=== PATIENT | female | born 1955 ===

== ENCOUNTER 2016-10-25 16:22 | Emergency (ER) | payer MEDICARE ==
[2016-10-25 16:34] VITALS: BMI 37.9
[2016-10-25 16:35] VITALS: RESP 18; TEMP 98.6
--- NOTE | 2016-10-25 17:00 | ED PDOC ---
Arrival/HPI <Douglas Dutta - Last Filed: 10/25/16 19:10> - General Historian: Patient, Family (daughter) - History of Present Illness Time/Duration: Other (since yesterday) Quality: Pressure Context: Home <MartinesElva boltonim P - Last Filed: 10/27/16 13:48> - General Chief Complaint: Medical Clearance Time Seen by Provider: 10/25/16 16:45 - History of Present Illness Narrative History of Present Illness (Text): 10/25/16 16:57 This 61 yo female with pmh hyperlipediemia, HTN, s/p vascular surgery left leg, presents to this ED c/o intermittent pressure like pain on left "carotid" artery since yesterday. Pain last for about 5 minutes, but it occurs very frequent. Pain radiates to left side of face, and to left anterior upper chest. Patient denies cp, sob, wheezing, trauma, dizziness, abdominal pain, or abnormal gait (Jerardo Martines P) Past Medical History - Provider Review Nursing Documentation Reviewed: Yes - Infectious Disease Hx of Infectious Diseases: None - Reproductive Menopause: Yes - Cardiac Hx Hypertension: Yes Hx Peripheral Vascular Disease: Yes Other/Comment: varicose veins legs - Integumentary Other/Comment: ulcer left ankle - Musculoskeletal/Rheumatological Hx Osteoarthritis: Yes - Gastrointestinal Hx Gastrointestinal Disorders: Yes Hx Gastroesophageal Reflux: Yes - Psychiatric Hx Substance Use: No - Surgical History Hx Tubal Ligation: Yes Other/Comment: vein stripping right leg 20 yrs ago - Anesthesia Hx Anesthesia: Yes Hx Anesthesia Reactions: No Hx Malignant Hyperthermia: No <Martines,Nahim P - Last Filed: 10/27/16 13:48> Family/Social History - Physician Review Nursing Documentation Reviewed: Yes Family/Social History: No Known Family HX Smoking Status: Never Smoked Hx Alcohol Use: No Hx Substance Use: No <Martines,Nahim P - Last Filed: 10/27/16 13:48> Allergies/Home Meds <Douglas Dutta - Last Filed: 10/25/16 19:10> <MartinesNahim P - Last Filed: 10/27/16 13:48> Allergies/Adverse Reactions: Allergies No Known Allergies Allergy (Verified 12/28/13 11:19) Home Medications: Home Meds Medication Instructions Recorded Confirmed Enalapril Maleate 20 mg PO DAILY 12/28/13 10/25/16 Simvastatin 20 mg PO DAILY 12/28/13 10/25/16 Review of Systems - Review of Systems Constitutional: Normal. absent: Fatigue, Weight Change, Fevers Eyes: Normal ENT: Normal Respiratory: Normal Cardiovascular: Normal Gastrointestinal: Normal Genitourinary Female: Normal Musculoskeletal: Other (Left "carotid" artery pressure like pain) Skin: Normal Neurological: Normal Endocrine: Normal Hemo/Lymphatic: Normal Psychiatric: Normal <Jerardo Martines - Last Filed: 10/27/16 13:48> Physical Exam Temperature: Afebrile Blood Pressure: Normal Pulse: Regular Respiratory Rate: Normal Appearance: Positive for: Well-Appearing, Non-Toxic, Comfortable Pain Distress: None Mental Status: Positive for: Alert and Oriented X 3 - Systems Exam Head: Present: Atraumatic, Normocephalic Pupils: Present: PERRL Extroacular Muscles: Present: EOMI Conjunctiva: Present: Normal Mouth: Present: Moist Mucous Membranes Neck: Present: Normal Range of Motion, Trachea Midline. No: Meningeal Signs, MIDLINE TENDERNESS, Paraspinal Tenderness, JVD, Lymphadenopathy, Bruit Respiratory/Chest: Present: Clear to Auscultation, Good Air Exchange. No: Respiratory Distress, Accessory Muscle Use Cardiovascular: Present: Regular Rate and Rhythm, Normal S1, S2. No: Murmurs Abdomen: Present: Normal Bowel Sounds. No: Tenderness, Distention, Peritoneal Signs Back: Present: Normal Inspection Upper Extremity: Present: Normal Inspection, Normal ROM, NORMAL PULSES, Neurovascularly Intact, Capillary Refill < 2s. No: Cyanosis, Edema Lower Extremity: Present: Normal Inspection, Normal ROM. No: Edema, CALF TENDERNESS Neurological: Present: GCS=15, CN II-XII Intact, Speech Normal Skin: Present: Warm, Dry, Normal Color. No: Rashes Psychiatric: Present: Alert, Oriented x 3, Normal Insight, Normal Concentration <ConradElvaashley P - Last Filed: 10/27/16 13:48> Vital Signs Temp Pulse Resp BP Pulse Ox 10/25/16 21:27 77 18 133/79 95 10/25/16 18:24 70 18 132/58 L 95 10/25/16 16:24 98.6 F 87 18 127/74 98 Medical Decision Making <Douglas Dutta - Last Filed: 10/25/16 19:10> Re-evaluation Time: 21:16 Reassessment Condition: Re-examined, Improved - Lab Interpretations I have reviewed the lab results: Yes Interpretation: No clinic. lab abnormalty <Jerardo Martines - Last Filed: 10/27/16 13:48> ED Course and Treatment: 10/25/16 21:16 Re-evaluation. Patient feels better. Discussed results and plan with patient who expresses understanding. All questions answered and there is agreement with the plan to discharge home with instructions. Patient stable for discharge. Return if symptoms persist or worsen Patient was examined by Dr. Dutta, who ordered CT angio of neck. (Jerardo Martines) - Lab Interpretations Lab Results: 10/25/16 17:05 10/25/16 17:05 Lab Results 10/25/16 17:05: WBC 5.2, RBC 4.67, Hgb 13.4, Hct 40.9, MCV 87.6, MCH 28.7, MCHC 32.8, RDW 14.4, Plt Count 314, MPV 9.7, Gran % 64.4, Lymph % (Auto) 23.1, [place] % (Auto) 7.8 H, Eos % (Auto) 4.3, Baso % (Auto) 0.4, Gran # 3.33, Lymph # 1.2, [place] # 0.4, Eos # 0.2, Baso # 0.02, Sodium 141, Potassium 3.8, Chloride 103, Carbon Dioxide 26, Anion Gap 16, BUN 17, Creatinine 0.9, Est GFR ( Amer) > 60, Est GFR (Non-Af Amer) > 60, Random Glucose 112 H, Calcium 9.9, Magnesium 1.8, Total Bilirubin 0.6, AST 31, ALT 27, Alkaline Phosphatase 71, Lactate Dehydrogenase 548, Total Creatine Kinase 106, Troponin I < 0.01, Total Protein 7.7, Albumin 4.2, Globulin 3.5, Albumin/Globulin Ratio 1.2 - RAD Interpretation Narrative RAD Interpretations (Text): 10/25/16 21:16 Patient Name: KEANU QUICK Institution Name: [place] [address] FINDINGS: VASCULATURE: Right common carotid artery: Unremarkable. No significant stenosis. No dissection or occlusion. Right internal carotid artery: Unremarkable. Extracranial segment is patent with no significant stenosis. No dissection or occlusion. Right external carotid artery: Unremarkable. No occlusion. Right vertebral artery: Unremarkable. No significant stenosis. No dissection or occlusion. Left common carotid artery: Unremarkable. No significant stenosis. No dissection or occlusion. KEANU QUICK | Preliminary Radiology Report Page 2 of 3 Left internal carotid artery: Unremarkable. Extracranial segment is patent with no significant stenosis. No dissection or occlusion. Left external carotid artery: Unremarkable. No occlusion. Left vertebral artery: Unremarkable. No significant stenosis. No dissection or occlusion. NECK: Bones/joints: Degenerative change in the spine. No acute fracture. No dislocation. Soft tissues: Unremarkable as visualized. No mass. Lung apices: Atelectasis in the upper lobes. CAROTID STENOSIS REFERENCE USING NASCET CRITERIA: % ICA stenosis = (1 - narrowest ICA diameter/diameter of distal cervical ICA) x 100. Mild - <50% stenosis. Moderate - 50-69% stenosis. Severe - 70-94% stenosis. Near occlusion - 95-99% stenosis. Occluded - 100% stenosis. IMPRESSION: No acute findings. No dissection EXAM: CT Head With Intravenous Contrast CLINICAL HISTORY: 61 years old, female; Pain; Other: Neck pain; Additional info: L side carotid / neck pain - R/O dissection TECHNIQUE: Axial computed tomography images of the head with intravenous contrast during the arterial phase of enhancement. CONTRAST: 95 mL of visipaque administered intravenously. COMPARISON: No relevant prior studies available. FINDINGS: Right internal carotid artery: No acute findings. Intracranial segment is patent with no significant stenosis. No aneurysm. Right anterior cerebral artery: Unremarkable. No occlusion or significant stenosis. No aneurysm. Right middle cerebral artery: Unremarkable. No occlusion or significant stenosis. No aneurysm. Right posterior cerebral artery: Unremarkable. No occlusion or significant stenosis. No aneurysm. Right vertebral artery: Unremarkable as visualized. Left internal carotid artery: No acute findings. Intracranial segment is patent with no significant stenosis. No aneurysm. Left anterior cerebral artery: Unremarkable. No occlusion or significant stenosis. No aneurysm. Left middle cerebral artery: Unremarkable. No occlusion or significant stenosis. No aneurysm. Left posterior cerebral artery: Unremarkable. No occlusion or significant stenosis. No aneurysm. Left vertebral artery: Unremarkable as visualized. Basilar artery: Unremarkable. No occlusion or significant stenosis. No aneurysm. Sinuses: Left maxillary sinus air-fluid level consistent with sinusitis. IMPRESSION: No acute findings. Thank you for allowing us to participate in the care of your patient. Dictated and Authenticated by: Óscar Stone MD 10/25/2016 9:10 PM Eastern Time ([place] & [place]) (Jerardo Martines) Radiology Orders: 10/25/16 16:55 CHEST PORTABLE [RAD] Stat 10/25/16 18:56 ANGIOGRAPHY NECK [CT] Stat - Medication Orders Current Medication Orders: Discontinued Medications Iodixanol (Visipaque 320 Mg/Ml 100 Ml) Confirm Administered Dose 100 ml IV .Knok- Complete [employer] ONE Stop: 10/25/16 20:03 - PA / SEAM FELLER / Resident Statement / has reviewed & agrees with the documentation as recorded. EJ has examined the patient and agrees with the treatment plan. <Douglas Dutta - Last Filed: 10/25/16 19:10> Disposition/Present on Arrival <Douglas Dutta - Last Filed: 10/25/16 19:10> - Present on Arrival Any Indicators Present on Arrival: No History of DVT/PE: No History of Uncontrolled Diabetes: No Urinary Catheter: No History of Decub. Ulcer: No History Surgical Site Infection Following: None - Disposition Have Diagnosis and Disposition been Completed?: Yes Disposition Time: 21:17 Patient Plan: Discharge <Jerardo Martines - Last Filed: 10/27/16 13:48> - Disposition Diagnosis: Neck pain Disposition: HOME/ ROUTINE Condition: GOOD Discharge Instructions (ExitCare): Musculoskeletal Pain (ED) Additional Instructions: Call private doctor for revaluation in 1-2 days. Return to emergency if symptoms returns or worsen. Referrals: Tressa Ontiveros MD [Primary Care Provider] - Follow up with primary
[2016-10-25 17:19] LABS: ADD MANUAL DIFF? NO
[2016-10-25 17:29] LABS: BASO # 0.02 K/mm3 (0.0-2.0); BASO % 0.4 % (0.0-3.0); EOS # 0.2 (0.0-0.7); EOS % 4.3 % (1.5-5.0); GRAN # 3.33 (1.4-6.5); GRAN % 64.4 % (50.0-68.0); HEMATOCRIT 40.9 % (36.0-48.0); LYMPH # 1.2 (1.2-3.4); LYMPH % 23.1 % (22.0-35.0); MEAN CELL VOLUME 87.6 fL (80.0-105.0); MEAN CORPUSCULAR HEMOGLOBIN 28.7 pg (25.0-35.0); MEAN CORPUSCULAR HGB CONC 32.8 g/dl (31.0-37.0); MEAN PLATELET VOLUME 9.7 fl (7.0-11.0); MONO # 0.4 (0.1-0.6); MONO % 7.8 % (1.0-6.0); PLATELET COUNT 314 10^3/uL (120.0-450.0); RED CELL DISTRIBUTION WIDTH 14.4 % (11.5-14.5); WHITE BLOOD COUNT 5.2 10^3/ul (4.5-11.0)
[2016-10-25 18:05] LABS: ALB/GLOB RATIO 1.2 (1.1-1.8); ALKALINE PHOSPHATASE 71 U/L (38-133); ALT/SGPT 27 U/L (7-56); AST/SGOT 31 U/L (15-39); BILIRUBIN,TOTAL 0.6 mg/dL (0.2-1.3); BLOOD UREA NITROGEN 17 mg/dL (7-21); CALCIUM 9.9 mg/dL (8.4-10.5); CARBON DIOXIDE 26 mmol/L (21-33); CHLORIDE 103 mmol/L (98-107); GFR AFRICAN-AMERICAN > 60; GLUCOSE,RANDOM 112 mg/dL (70-110); MAGNESIUM 1.8 mg/dL (1.7-2.2); POTASSIUM 3.8 mmol/L (3.6-5.0); SODIUM 141 mmol/L (132-148); TOTAL PROTEIN 7.7 g/dL (5.8-8.3)
[2016-10-25 18:34] LABS: TROPONIN I < 0.01 ng/mL
[2016-10-25 18:59] VITALS: O2SAT 95
[2016-10-25] MEDS ORDERED: Iodixanol 320 MG/ML 100 ML BOTTLE IV ONE (20:02)
[2016-10-25 21:27] VITALS: BP 133/79; PULSE 77
--- NOTE | 2016-10-26 09:17 | RAD ---
HISTORY: neck pressure pain COMPARISON: No prior. FINDINGS: LUNGS: No active pulmonary disease. PLEURA: No significant pleural effusion identified, no pneumothorax apparent. CARDIOVASCULAR: There is moderate vascular congestion OSSEOUS STRUCTURES: No significant abnormalities. VISUALIZED UPPER ABDOMEN: Normal. OTHER FINDINGS: None. IMPRESSION: Moderate vascular congestion
--- NOTE | 2016-10-26 10:10 | CT ---
PROCEDURE: CT Angiography of the neck with contrast HISTORY: L side carotid / neck pain - r/o dissection COMPARISON: None available. TECHNIQUE: Contiguous axial images of the neck were obtained from the level of the skull-base to the superior mediastinum in the arteriographic phase of enhancement. Coronal and sagittal reformats or also generated. IV contrast dose: Radiation Dose - DLP: mGy-cm This CT exam was performed using one or more of the following dose reduction techniques: Automated exposure control, adjustment of the mA and/or kV according to patient size, and/or use of iterative reconstruction technique. Intravenous contrast dose: 100 cc of Visipaque Radiation dose: DLP 440 mGy-cm FINDINGS: RIGHT CAROTID ARTERIES: Common Carotid Artery: Normal. Carotid Bifurcation: Normal. Internal Carotid Artery:Normal. External Carotid Artery (proximal branches): Normal. LEFT CAROTID ARTERIES: Common Carotid Artery: Normal. Carotid Bifurcation: Normal. Internal Carotid Artery:Normal. External Carotid Artery (proximal branches): Normal. VERTEBRAL ARTERIES: Right Vertebral Artery: Normal. Left Vertebral Artery: Normal. OTHER FINDINGS: None. CT Angiography of the Brain. HISTORY: L side carotid / neck pain - r/o dissection COMPARISON: None available. TECHNIQUE: CT angiography of the intracranial arteries was performed. Coronal and sagittal maximum intensity projection reformated images were generated. This CT exam was performed using one or more of the following dose reduction techniques: Automated exposure control, adjustment of the mA and/or kV according to patient size, and/or use of iterative reconstruction technique. Intravenous contrast dose: 100 cc of Visipaque Radiation dose: DLP 440 mGy-cm FINDINGS: INTERNAL CEREBRAL ARTERIES: Unremarkable. The skull base, petrous, cavernous and supraclinoid segments are bilaterally widely patient. ANTERIOR CEREBRAL ARTERIES: Unremarkable. A1 and A2 segments are widely patent. Smaller distal branches unremarkable, as visualized. MIDDLE CEREBRAL ARTERIES: Unremarkable. M1 and M2 segments are widely patent. Perisylvian branches grossly symmetric. POSTERIOR CIRCULATION: Basilar Artery: Unremarkable. Distal Vertebral Arteries: Unremarkable. Posterior Cerebral Arteries: Unremarkable. Posterior Inferior Cerebellar Arteries: Unremarkable. ANEURYSM/ VASCULAR MALFORMATIONS: None. The report concurs with the preliminary [facility] report IMPRESSION: Negative study
--- NOTE | 2016-10-26 11:59 | CARD ---
APPROVED REPORT EKG Measurement Heart [id number] <Conclusion> Normal sinus rhythm Minimal voltage criteria for LVH, may be normal variant Borderline ECG
== END 2016-10-25 21:34 | disposition home or self-care (01) ==
LOC: ED 16:22
DX: M54.2 Cervicalgia (principal); I10 Essential (primary) hypertension
CPT/HCPCS: 70498; 71010; 80053; 82550; 83615; 83735; 84484; 85025; 93005; 99283; Q9967